=== PATIENT | male | born 1990 | race African-American/Black ===

== ENCOUNTER 2021-06-21 13:56 | Emergency (ER) | payer OTHER ==
[~2021-06-21] VITALS: Ht 188 cm; Wt 146.5 kg
[2021-06-21 15:10] LABS: URINE BILIRUBIN NEGATIVE (Negative); URINE BLOOD NEGATIVE (Negative); URINE CLARITY CLEAR; URINE COLOR YELLOW; URINE GLUCOSE-RANDOM* NEGATIVE (Negative); URINE KETONES NEGATIVE (Negative); URINE LEUKOCYTES-REFLEX TRACE (Negative); URINE NITRITE-REFLEX NEGATIVE (Negative); URINE PROTEIN (DIPSTICK) TRACE (Negative); URINE SPECIFIC GRAVITY 1.025 (1.005-1.035)
[2021-06-21] MEDS ORDERED: IBUPROFEN 800800 MG PO (16:36)
[2021-06-21 16:37] VITALS: BP 94/50
== END 2021-06-21 16:42 | disposition home or self-care (01) ==
LOC: ER 13:56
PROVIDERS: Nurse Practitioner Family
DX: M54.5 Low back pain (principal); R05 Cough; Z91.09 Other allergy status, other than to drugs and biological substances; Z20.822 Contact with and (suspected) exposure to COVID-19